=== PATIENT | male | born 1955 | race Caucasian/White ===

== ENCOUNTER 2018-06-15 06:41 | Day surgery (SDC) | payer MEDICARE, MEDICAID ==
[2018-06-15] MEDS ORDERED: Acetaminophen 500 MG Tab PO ONE (06:45)
[2018-06-15] MEDS ORDERED: Dextrose 5%-Lactated Ringers 1,000 ML IV SCH (06:45)
[2018-06-15] MEDS ORDERED: Lidocaine 1% with EPINEPHrine 1:100,000 50 ML MDV ONE (06:59)
[2018-06-15] MEDS ORDERED: Bupivacaine 0.5% 50 ML MDV ONE (06:59)
[2018-06-15] MEDS ORDERED: Propofol 200 MG/20 ML SDV ONE ×3 (07:15→09:06)
[2018-06-15] MEDS ORDERED: Midazolam 1 MG/ML 2 ML SDV ONE (07:16)
[2018-06-15] MEDS ORDERED: fentaNYL 100 MCG/2 ML SDV ONE (07:16)
[2018-06-15] MEDS ORDERED: ceFAZolin 2 GM in Premix Bag 1 BAG IV ONE (08:15)
[2018-06-15] MEDS ORDERED: Ketorolac 60 MG/2 ML SDV ONE (09:32)
[2018-06-15 11:15] VITALS: BP 139/84
[2018-06-15] MEDS ORDERED: oxyCODONE 5 MG Tab PO PRN (11:18)
--- NOTE | 2018-06-21 15:03 | OR ---
DATE OF PROCEDURE: 06/15/2018 PREOPERATIVE DIAGNOSES: 1. Chronic right groin pain, status post previous hernia repair and probable development of neuroma. 2. Chronically painful right inguinal lymph node. POSTOPERATIVE DIAGNOSIS: Chronic right groin pain associated with: 1. 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 2. Focal recurrence of right inguinal hernia (direct). 3. Portion of previous mesh migrating into the intraperitoneal location likely causing pain. 4. Painful left inguinal lymph node. OPERATIVE PROCEDURE: Right groin exploration with: 1. Excision of neuroma (92959). 2. Triple neurectomy (excision of a portion of the ilioinguinal, iliohypogastric, and genital branch of genitofemoral nerves on the right side) (70759 x3). 3. Removal of portion of intraperitoneal mesh (44751). 4. Repair of focal recurrent right inguinal hernia (03846). 5. Excision of right inguinal lymph node (18400). ANESTHESIA: Local plus IV sedation. NURSE WOUND: Eli Tanner PA-C and STEFAN Ash. INDICATION FOR PROCEDURE: This is a 63-year-old presenting with chronic right groin pain. He is status post previous right inguinal hernia repair with mesh. Clinically, he has probably a neuroma in the lateral aspect of the previous right inguinal incision. He has a firm scar that was quite tender to palpation. The plan is to proceed with a right inguinal exploration. We will try to identify any additional areas of potential causes of pain and any recurrence of the hernia. The plan will be to proceed with triple neurectomy as well, to help minimize postoperative pain, dividing the iliohypogastric, ilioinguinal, and genital branch of the genitofemoral nerves, if identifiable. He also has a clinically painful lymph node just below the inguinal ligament, which will be excised as well. Potential risks of the procedure including bleeding, infection, injury to underlying viscera, possible persistence of pain postoperatively, and recurrence of hernia once again were all reviewed, and the patient wishes to proceed. He is aware that, with the neurectomy, he will have some areas of cutaneous anesthesia associated with that in the right groin and scrotal areas. DESCRIPTION OF PROCEDURE: The patient was taken to the operating room and placed in the supine position. After IV sedation was administered, the abdomen and groin areas were prepped and draped. The right inguinal area was anesthetized with 1% lidocaine mixed with Marcaine. Previous right inguinal incision was used and extended somewhat more laterally. This then allowed dissection downward through the external oblique aponeurosis. Underlying that then was the painful area of scar. There was a tiny nerve branch entering it that one could see, so this would appear to be a neuroma. This was excised and sent as a specimen. At that point, the external oblique aponeurosis was dissected inferiorly and superiorly away from the inguinal floor, and the cord structures were mobilized upward. The iliohypogastric and ilioinguinal nerves were initially identified and divided and then a section of the nerve excised and then divided finally on far lateral aspect of the incision. Cord structures were mobilized upward. The patient was noted to have a focal recurrence of the hernia on the lateral aspect of the floor. There also appeared to be some migration of some mesh somewhat deeply, and this area was then opened and a portion of the mesh, which was more or less intraperitoneal, was excised. The repair was fairly small. At this point, this was accomplished with a running 0 Vicryl stitch between the free edge of the conjoint tendon and the shelving portion of the inguinal ligament. We did not put new mesh in, as mesh in that area may have been contributed to some of his discomfort. Finally, what appeared to be the genital branch of genitofemoral nerve was identified on the posterior aspect of the cord structures, and a portion of that was also excised. From this point, no further problems were noted in the inguinal floor area per se. Dissection continued just below the inguinal ligament, and the painful lymph node was identified and excised using electrocautery, with lymphatic branches entering it being ligated with 4-0 Vicryl stitch as they were divided. At this point, the external oblique aponeurosis was reapproximated with a 4-0 Vicryl stitch as was Lavinia's fascia and the skin closed with 4-0 Vicryl subcuticular stitch. Dressing was applied. The patient was taken to the recovery room in satisfactory condition. Physician sales and marketing assistant, Eli Tanner, played an essential role in assisting in this case, helping to position the patient, retract structures as needed, as well as suturing and cutting sutures when indicated. Her presence improved the patient's safety and decreased operative time. Gabriel Tanner MD /[id number]
== END 2018-06-15 11:45 | disposition home or self-care (01) ==
LOC: JP.SDS 06:41
PROVIDERS: ATTEND Surgery
DX: G57.81 Other specified mononeuropathies of right lower limb (principal); K40.91 Unilateral inguinal hernia, without obstruction or gangrene, recurrent; K21.9 Gastro-esophageal reflux disease without esophagitis; E66.9 Obesity, unspecified; Z88.6 Allergy status to analgesic agent
CPT/HCPCS: 38500; 49520; 64774; 88300; 88302; 88304; 88305; A9270; J0690; J1885; J2250; J2704; J3010; J3490; J7042